=== PATIENT | male | born 1970 | race Caucasian/White ===

== ENCOUNTER 2017-07-08 22:43 | Emergency (ER) | payer OTHER ==
[2017-07-08] MEDS ORDERED: Diphtheria,Pertussis(Acell),Tetanus Vaccine 0.5 ML SDV inactive IM ONE (23:05)
[2017-07-08] MEDS ORDERED: Cephalexin 500 MG Cap ONE (23:40)
--- NOTE | 2017-07-25 16:51 | EDM.PDOC ---
ED HPI GENERAL MEDICAL PROBLEM - General Chief Complaint: General Stated Complaint: LACERATION Time Seen by Provider: 07/08/17 22:55 Source of Information: Reports: Patient History Limitations: Reports: No Limitations - History of Present Illness INITIAL COMMENTS - FREE TEXT/NARRATIVE: This is a 47 yo M who caught his right middle finger in the garage door and pulled it out. Denies other injuries. Onset: Sudden Location: Reports: Upper Extremity, Right Quality: Reports: Ache Severity: Mild Improves with: Reports: None Worsens with: Reports: None Right Middle Hand Pain Score (Numeric/FACES): 2 - Related Data Allergies Allergy/AdvReac Type Severity Reaction Status Date / Time No Known Allergies Allergy Verified 07/08/17 23:38 Home Meds: Home Meds Naproxen 500 gm PO BID PRN 09/20/13 [History] Past Medical History - Past Health History Medical/Surgical History: Denies Medical/Surgical History HEENT History: Reports: Impaired Vision Musculoskeletal History: Reports: Neck Pain, Chronic Dermatologic History: Reports: Cellulitis - Infectious Disease History Infectious Disease History: Reports: Chicken Pox Social & Family History - Family History Family Medical History: Noncontributory - Tobacco Use Smoking Status *Q: Never Smoker Years of Tobacco use: 17 Used Tobacco, but Quit: Yes Month Tobacco Last Used: 05/1999 Second Hand Smoke Exposure: No - Caffeine Use Caffeine Use: Reports: Coffee - Alcohol Use Days Per Week of Alcohol Use: 3 Number of Drinks Per Day: 3 Total Drinks Per Week: 9 - Recreational Drug Use Recreational Drug Use: No Review of Systems - Review of Systems Review Of Systems: ROS reveals no pertinent complaints other than HPI. ED EXAM, GENERAL - Physical Exam Exam: See Below Exam Limited By: No Limitations General Appearance: Alert, WD/WN, No Apparent Distress Respiratory/Chest: No Respiratory Distress Cardiovascular: Normal Peripheral Pulses Extremities: Other (right middle distla digit laceration with nail and nailbed involvement 1.6cm) Course - Vital Signs Last Recorded V/S: Last Vital Signs Temp 35.9 C 07/08/17 22:50 Pulse 67 07/08/17 22:50 Resp 20 07/08/17 22:50 BP 145/98 H 07/08/17 22:50 Pulse Ox 96 07/08/17 22:50 - Orders/Labs/Meds Meds: Medications Discontinued Medications Generic Name Dose Route Start Last Admin Trade Name Juan Antonio PRN Reason Stop Dose Admin Cephalexin 10,000 mg 07/08/17 23:40 Keflex .ROUTE 07/08/17 23:41 .STK-MED ONE Diphtheria/Tetanus/Acell Pertussis 0.5 ml 07/08/17 23:05 07/08/17 23:08 Boostrix IM 07/08/17 23:06 0.5 ml .ONCE ONE Administration Departure - Departure Time of Disposition: 23:00 Disposition: Home, Self-Care 01 Condition: Good Clinical Impression: Laceration - Discharge Information Instructions: Wound Infection, [id number], Cephalexin tablets or capsules Forms: ED Department Discharge Additional Instructions: Keep applied dressing in place until follow up in clinic on . Be sure to watch affected finger for any signs/symptoms of infection present including increased redness, increased swelling, increased pain or tenderness to touch, foul drainage and/or fever present. Should any of these symptoms occur, return to be seen right away. Begin taking provided Keflex tonight, as directed: 1 capsule by mouth every 8 hours until all are gone. Call with any questions.
== END 2017-07-08 23:30 | disposition home or self-care (01) ==
LOC: LB.ED 22:43
DX: S61.312A Laceration without foreign body of right middle finger with damage to nail, initial encounter (principal); W23.0XXA Caught, crushed, jammed, or pinched between moving objects, initial encounter; Z23 Encounter for immunization; Z87.891 Personal history of nicotine dependence
CPT/HCPCS: 90471; 90715; 99282; A9270

== ENCOUNTER 2018-10-14 12:56 | Emergency (ER) | payer OTHER ==
[2018-10-14] MEDS ORDERED: Ketorolac 60 MG/2 ML SDV IM ONE (13:12)
[2018-10-14] MEDS ORDERED: LORazepam 1 MG Tab PO ONE (13:12)
[2018-10-14] MEDS ORDERED: Ketorolac 60 MG/2 ML SDV ONE (13:22)
[2018-10-14] MEDS ORDERED: LORazepam 1 MG Tab ONE (13:22)
--- NOTE | 2018-10-14 13:28 | EDM.PDOC ---
ED HPI GENERAL MEDICAL PROBLEM - General Chief Complaint: Back Pain or Injury Stated Complaint: back pain Time Seen by Provider: 10/14/18 13:10 Source of Information: Reports: Patient History Limitations: Reports: No Limitations - History of Present Illness INITIAL COMMENTS - FREE TEXT/NARRATIVE: This patient presents to the ED for evaluation of back pain. He has had twinges of right back pain over the past couple of weeks that has gotten much worse today. He is complaining of left lower back pain with radiation down through buttocks and leg. Denies numbness or tingling. No history of trauma but did shovel snow off his roof a couple of weeks ago and that intermittent pain started after that. He denies other concerns or complaints. Onset: Gradual Onset Date: 09/30/18 Onset Time: 08:00 Duration: Getting Worse Location: Reports: Lower Extremity, Left Quality: Reports: Ache, Burning Severity: Moderate Improves with: Reports: Medication (used flexeril last night) Worsens with: Reports: Movement Associated Symptoms: Reports: No Other Symptoms - Related Data Allergies Allergy/AdvReac Type Severity Reaction Status Date / Time No Known Allergies Allergy Verified 07/08/17 23:38 Home Meds: Home Meds Naproxen 500 gm PO BID PRN 09/20/13 [History] Lisinopril/Hydrochlorothiazide [Lisinopril-Hctz 10-12.5 mg Tab] 10/14/18 [ History] Methotrexate Sodium [Methotrexate] 10/14/18 [History] Past Medical History - Past Health History Medical/Surgical History: Denies Medical/Surgical History HEENT History: Reports: Impaired Vision Musculoskeletal History: Reports: Neck Pain, Chronic Dermatologic History: Reports: Cellulitis - Infectious Disease History Infectious Disease History: Reports: Chicken Pox Social & Family History - Family History Family Medical History: Noncontributory - Caffeine Use Caffeine Use: Reports: Coffee ED ROS GENERAL - Review of Systems Review Of Systems: See Below Constitutional: Denies: Fever HEENT: Reports: No Symptoms Respiratory: Reports: No Symptoms Cardiovascular: Reports: No Symptoms Musculoskeletal: Reports: No Symptoms Skin: Reports: No Symptoms Neurological: Denies: Dizziness, Headache, Numbness, Paresthesia, Tingling, Difficulty Walking ED EXAM,LOWER BACK PAIN/INJURY - Physical Exam Exam: See Below Exam Limited By: No Limitations General Appearance: Alert, WD/WN, No Apparent Distress Eye Exam: Bilateral Eye: PERRL Ears: Normal External Exam Throat/Mouth: Normal Inspection Head: Atraumatic, Normocephalic Neck: Normal Inspection Respiratory/Chest: No Respiratory Distress, Lungs Clear, No Accessory Muscle Use Back Exam: Normal Inspection, Decreased Range of Motion, Muscle Spasm (No tenderness with palpation of spine. Tenderness with palpation of lumbar area lateral to spine. Tenderness with palpation of left buttock. Pain reported down leg. No swelling, discoloration, or deformity. Distal CMS intact.), Other Course - Orders/Labs/Meds Meds: Medications Discontinued Medications Generic Name Dose Route Start Last Admin Trade Name Freq PRN Reason Stop Dose Admin Ketorolac Tromethamine 60 mg 10/14/18 13:12 10/14/18 13:20 Toradol IM 10/14/18 13:13 60 mg ONETIME ONE Administration Ketorolac Tromethamine Confirm 10/14/18 13:22 Toradol Administered 10/14/18 13:23 Dose 60 mg .ROUTE .STK-MED ONE Lorazepam 1 mg 10/14/18 13:12 Ativan PO 10/14/18 13:13 ONETIME ONE Lorazepam Confirm 10/14/18 13:22 10/14/18 13:20 Ativan Administered 10/14/18 13:23 1 mg Dose Administration 1 mg .ROUTE .STK-MED ONE - Re-Assessments/Exams Free Text/Narrative Re-Assessment/Exam: 10/14/18 15:57 This patient presents for evaluation of back pain. They have a history of back pain with sciatica in the past. Pain has improved with interventions in the ED. The patient did not sustain any trauma, therefore x-rays are not necessary due to the low likelihood of fracture or subluxation. No red flag symptoms to suggest CT and/or MRI is indicated at this point. The patient has not had a fever, saddle/perineal anesthesia, bilateral foot numbness, or bowel or bladder dysfunction. There is no clinical evidence of cauda equina syndrome, discitis, spinal/epidural space hematoma or epidural abscess. The neurological exam is normal and the patient's symptoms seem consistent with a musculoskeletal issues and significant muscle spasm. The patient will be discharged with medications to use as directed. Ice or heat to the back and stretching exercises. No heavy lifting, bending or twisting. Return if increasing pain, numbness, weakness, or bowel or bladder dysfunction. The patient was advised to schedule follow-up with their primary doctor within 3 days to re-assess symptoms. Departure - Departure Time of Disposition: 14:30 Disposition: Home, Self-Care 01 Condition: Good Clinical Impression: Sciatica - Discharge Information *PRESCRIPTION DRUG MONITORING PROGRAM REVIEWED*: No *COPY OF PRESCRIPTION DRUG MONITORING REPORT IN PATIENT ISABEL: Not Applicable Instructions: Oxycodone tablets or capsules, Sciatica Referrals: PCP,None [Ordering Only Provider] - Forms: ED Department Discharge Care Plan Goals: Take oxycodone 10 mg every 6 to 8 hours as needed for discomfort. Apply ice 20 minutes 4 to 5 x day. Return to clinic in 1 week.
== END 2018-10-14 14:15 | disposition home or self-care (01) ==
LOC: LB.ED 12:56
DX: M54.42 Lumbago with sciatica, left side (principal); Z79.899 Other long term (current) drug therapy
CPT/HCPCS: 96372; 99283; A9270; J1885